=== PATIENT | female | born 1980 | race Caucasian/White ===

== ENCOUNTER 2020-11-08 12:34 | Emergency (ER) | payer OTHER ==
[~2020-11-08 12:34] MED LIST: AJOVY225 MG/1.5 IJ; ASPIRIN CHEWABL81 MG PO; ASPIRIN81 MG PO; ATARAX25 MG PO; CIPRO250 MG PO; COLACE100 MG PO; COLESTID1 GM PO; DITROPAN5 MG PO; EMGALITY120 MG/1 M IM; ESTRADIOL1 MG PO; FOLIC ACID1 M1 PO; MACROBID100 MG PO; MEDROL 4MG DOSEP4 MG PO; MOTRIN600 MG PO; PERCOCET 5-3251 EACH PO; PYRIDIUM100 MG PO; TESSALON PERLE100 M1 PO; TOPROL XL 25MG25 MG PO; TRAZODONE 100M100 MG PO; VENTOLIN HFA IN18 GM INH; ZOFRAN4 MG PO; ZOLOFT25 MG PO; ZONEGRAN100 MG PO; ZPAK PO; [UNRECOGNIZED DRUG - OTHER] SC
[2020-11-08 13:39] LABS: BASOPHIL 0.2 % (0-2); EOSINOPHIL 0.6 % (0-5); HCT 37.8 % (37.0-47.0); HGB 13.1 g/dl (12.5-16.0); LYMPHOCYTE 29.8 % (15-48); MCH 30.3 pg (25.0-31.0); MCHC 34.7 g/dL (32.0-36.0); MCV 87.3 fL (78.0-100.0); MONOCYTE 6.9 % (0-12); MPV 9.7 fL (6.0-9.5); NEUTROPHIL 62.5 % (41-80); NRBC 0; PLT 202 K/uL (150-400); RBC 4.33 M/uL (4.20-5.40); RDW 12.7 % (11.5-14.0); WBC 5.1 K/uL (4.0-10.5)
[2020-11-08 14:43] LABS: BUN/CREAT RATIO (CALC) 8.8 RATIO; CREATININE 0.8 mg/dL (0.51-0.95); POTASSIUM 3.4 mmol/L (3.5-5.1)
[2020-11-08 14:54] LABS: LACTIC ACID 3.9 mmol/L (0.4-1.9)
[2020-11-08 15:50] LABS: BILIRUBIN NEGATIVE (NEGATIVE); BLOOD NEGATIVE Ery/uL (NEGATIVE); CLARITY CLEAR (CLEAR); COLOR YELLOW (YELLOW); GLUCOSE (U) NORMAL (NORMAL); LEUKOCYTES NEGATIVE Leu/uL (NEGATIVE); NITRITE NEGATIVE (NEGATIVE); PROTEIN NEGATIVE (NEGATIVE); UROBILINOGEN 0.2 mg/dL (0.2-1.0)
[2020-11-08 16:11] LABS: CORONAVIRUS 2019 SARS-COV-2 NEGATIVE (NEGATIVE); INFLUENZA A NAA NEGATIVE (NEGATIVE)
[2020-11-08] MEDS ORDERED: ZOFRAN4 M1 PO (18:01)
== END 2020-11-08 18:18 | disposition home or self-care (01) ==
LOC: FER 12:34
PROVIDERS: Nurse Practitioner Family
DX: N64.4 Mastodynia (principal); R11.0 Nausea; R50.9 Fever, unspecified; Z87.442 Personal history of urinary calculi; Z90.13 Acquired absence of bilateral breasts and nipples; Z88.0 Allergy status to penicillin; Z88.1 Allergy status to other antibiotic agents; Z88.5 Allergy status to narcotic agent; Z88.2 Allergy status to sulfonamides; Z20.822 Contact with and (suspected) exposure to COVID-19
CPT/HCPCS: 36415; 71046; 76642-LT; 80048; 81003; 83605; 84484; 85025; 87040; 93005; J1170; J1885; J2405; J2550; J3490; J7030; U0002

== ENCOUNTER 2021-02-10 13:26 | Emergency (ER) | payer OTHER ==
[~2021-02-10 13:26] MED LIST changes: +ZOFRAN4 M1 PO
[2021-02-10 14:06] LABS: BASOPHIL 0.2 % (0-2); HCT 39.8 % (37.0-47.0); HGB 13.1 g/dl (12.5-16.0); LYMPHOCYTE 34.7 % (15-48); MCH 28.5 pg (25.0-31.0); MCHC 32.9 g/dL (32.0-36.0); MCV 86.5 fL (78.0-100.0); MONOCYTE 6.3 % (0-12); MPV 9.4 fL (6.0-9.5); NEUTROPHIL 57.4 % (41-80); PLT 194 K/uL (150-400); RDW 13.1 % (11.5-14.0)
[2021-02-10 14:24] LABS: ALBUMIN 3.3 g/dL (3.4-5.0); BILIRUBIN - TOTAL 0.2 mg/dL (0.2-1.0); BUN/CREAT RATIO (CALC) 13.8 RATIO; CREATININE 0.8 mg/dL (0.51-0.95); GLOBULIN (CALCULATION) 3.7 g/dL
[2021-02-10 15:03] LABS: CORONAVIRUS 2019 SARS-COV-2 NEGATIVE (NEGATIVE); INFLUENZA A NAA NEGATIVE (NEGATIVE)
[2021-02-10] MEDS ORDERED: ZOFRAN4 M1 PO ×2 (16:28→16:35)
[2021-02-10] MEDS ORDERED: MEDROL 4MG DOSEP4 MG PO ×2 (16:28→16:35)
== END 2021-02-10 16:42 | disposition home or self-care (01) ==
LOC: FER 13:26
PROVIDERS: Nurse Practitioner Family
DX: J06.9 Acute upper respiratory infection, unspecified (principal); Z20.822 Contact with and (suspected) exposure to COVID-19; Z88.0 Allergy status to penicillin; Z88.5 Allergy status to narcotic agent; Z88.1 Allergy status to other antibiotic agents; Z88.8 Allergy status to other drugs, medicaments and biological substances
CPT/HCPCS: 36415; 71045; 80053; 85025; 87880; 93005; J1885; J2405; J7030; U0002

== ENCOUNTER 2021-03-22 07:48 | Emergency (ER) | payer OTHER ==
[2021-03-22 08:09] LABS: BASOPHIL 0.4 % (0-2); EOSINOPHIL 1.3 % (0-5); HGB 14.7 g/dl (12.5-16.0); LYMPHOCYTE 46.2 % (15-48); MCH 29.2 pg (25.0-31.0); MCHC 33.4 g/dL (32.0-36.0); MCV 87.5 fL (78.0-100.0); MONOCYTE 7.3 % (0-12); NEUTROPHIL 44.6 % (41-80); NRBC 0; PLT 183 K/uL (150-400); RBC 5.03 M/uL (4.20-5.40); RDW 13.7 % (11.5-14.0); WBC 4.7 K/uL (4.0-10.5)
[2021-03-22 08:26] LABS: ALBUMIN 3.9 g/dL (3.4-5.0); BILIRUBIN - TOTAL 0.2 mg/dL (0.2-1.0); BUN/CREAT RATIO (CALC) 13.9 RATIO; CREATININE 0.79 mg/dL (0.51-0.95); GLOBULIN (CALCULATION) 3.5 g/dL; POTASSIUM 3.9 mmol/L (3.5-5.1); TOTAL PROTEIN 7.4 g/dL (6.4-8.2)
[2021-03-22] MEDS ORDERED: NITROGLYCERIN0.4 MG SL (10:11)
[2021-03-22] MEDS ORDERED: ONDANSETRON ODT4 MG PO (10:11)
== END 2021-03-22 11:31 | disposition home or self-care (01) ==
LOC: FER 07:48
PROVIDERS: Internal Medicine
DX: R07.89 Other chest pain (principal); R42 Dizziness and giddiness; Z88.6 Allergy status to analgesic agent; Z88.0 Allergy status to penicillin; Z88.2 Allergy status to sulfonamides; Z88.1 Allergy status to other antibiotic agents
CPT/HCPCS: 36415; 71045; 80053; 83690; 84484; 85025; 93005; J2405; J7120

== ENCOUNTER 2021-09-02 14:36 | Emergency (ER) | payer OTHER ==
[~2021-09-02 14:36] MED LIST changes: +NITROGLYCERIN0.4 MG SL; +ONDANSETRON ODT4 MG PO
[2021-09-02 16:10] LABS: BASOPHIL 0.2 % (0-2); EOSINOPHIL 0.2 % (0-5); HGB 14.5 g/dl (12.5-16.0); LYMPHOCYTE 39.4 % (15-48); MCH 29.8 pg (25.0-31.0); MCHC 34.5 g/dL (32.0-36.0); MCV 86.2 fL (78.0-100.0); MONOCYTE 6.6 % (0-12); MPV 10.1 fL (6.0-9.5); NRBC 0; PLT 195 K/uL (150-400); RBC 4.87 M/uL (4.20-5.40); RDW 12.8 % (11.5-14.0); WBC 4.7 K/uL (4.0-10.5)
[2021-09-02 16:17] LABS: ALBUMIN 4.2 g/dL (3.4-5.0); BILIRUBIN - TOTAL 0.5 mg/dL (0.2-1.0); BUN/CREAT RATIO (CALC) 16.5 RATIO; CREATININE 0.79 mg/dL (0.51-0.95); GLOBULIN (CALCULATION) 3.6 g/dL; POTASSIUM 3.7 mmol/L (3.5-5.1); TOTAL PROTEIN 7.8 g/dL (6.4-8.2)
[2021-09-02 16:17] LABS: BILIRUBIN NEGATIVE (NEGATIVE); BLOOD TRACE-INTACT Ery/uL (NEGATIVE); CLARITY CLEAR (CLEAR); COLOR YELLOW (YELLOW); GLUCOSE (U) NORMAL (NORMAL); LEUKOCYTES NEGATIVE Leu/uL (NEGATIVE); NITRITE NEGATIVE (NEGATIVE); PROTEIN NEGATIVE (NEGATIVE); UROBILINOGEN 0.2 mg/dL (0.2-1.0)
[2021-09-02 16:26] LABS: BACTERIA TRACE; MUCOUS MODERATE
== END 2021-09-02 18:45 | disposition home or self-care (01) ==
LOC: FER 14:36
PROVIDERS: Emergency Medicine
DX: N20.0 Calculus of kidney (principal); Z88.0 Allergy status to penicillin; Z88.6 Allergy status to analgesic agent; Z88.1 Allergy status to other antibiotic agents; Z88.8 Allergy status to other drugs, medicaments and biological substances; Z91.013 Allergy to seafood; Z91.040 Latex allergy status
CPT/HCPCS: 36415; 80053; 81001; 82270; 83690; 85025